=== PATIENT | male | born 1950 | race Caucasian/White ===

== ENCOUNTER 2017-10-31 10:09 | Inpatient (IN) | payer MEDICARE ==
[2017-10-29 11:28] LABS: BASOPHILS % (AUTO) 0.3 % (0-1); EOSINOPHILS # (AUTO) 0.1 X10'3 (0-0.9); EOSINOPHILS % (AUTO) 1.1 % (0-6); HEMOGLOBIN 15.3 g/dl (14.0-17.9); LYMPHOCYTES # (AUTO) 1.5 X10'3 (1.1-4.8); LYMPHOCYTES % (AUTO) 20.1 % (21-51); MEAN CORPUSCULAR HEMOGLOBIN 33.3 PG (27.0-31.0); MEAN CORPUSCULAR HGB CONC 35.6 % (33.0-36.5); MEAN CORPUSCULAR VOLUME 93.5 FL (78-98); MEAN PLATELET VOLUME 6.8 FL (7.4-10.4); MONOCYTES # (AUTO) 0.5 X10'3 (0-0.9); MONOCYTES % (AUTO) 6.5 % (2-12); NEUTROPHILS # (AUTO) 5.3 X10'3 (1.8-7.7); PLATELET COUNT 200 X10'3 (140-440); RED CELL DISTRIBUTION WIDTH 14.4 % (11.5-14.5); WHITE BLOOD COUNT 7.3 X10'3 (4.5-11.0)
[2017-10-29 11:49] LABS: PARTIAL THROMBOPLASTIN TIME 23 SECONDS (22-32)
[2017-10-29 11:55] LABS: ALANINE AMINOTRANSFERASE 32 U/L (12-78); ALBUMIN 3.5 G/DL (3.4-5.0); ALBUMIN/GLOBULIN RATIO 0.9 (1.1-1.5); ALKALINE PHOSPHATASE 67 IU/L (46-116); ANION GAP 10 (8-16); ASPARTATE AMINO TRANSFERASE 18 U/L (10-37); BILIRUBIN,TOTAL 0.6 MG/DL (0.1-1.0); BLOOD UREA NITROGEN 11 MG/DL (7-18); BUN/CREATININE RATIO 13.6 (5.4-32.0); CALCIUM 9.3 MG/DL (8.5-10.1); CHLORIDE 101 MMOL/L (99-107); CREATININE 0.81 MG/DL (0.60-1.10); GLUCOSE 293 MG/DL (70-104); POTASSIUM 4.2 MMOL/L (3.5-5.1); SODIUM 139 MMOL/L (135-145); TOTAL CARBON DIOXIDE 27.7 MMOL/L (24-32); TOTAL PROTEIN 7.6 G/DL (6.4-8.2); eGFR > 90 ML/MIN
[~2017-10-31] VITALS: Ht 172.7 cm; Wt 94.5 kg
[2017-10-31] VITALS (12 sets, daily range): BP systolic 127–160; BP diastolic 70–96
[2017-10-31] MEDS ORDERED: LORazepam 0.5 MG tablet PO PRN (10:30)
[2017-10-31] MEDS ORDERED: dextrose 50%-water 50ml dispensing syringe IV PRN ×3 (10:30→14:40)
[2017-10-31] MEDS ORDERED: glucagon, human recombinant 1mg kit SUBCUT PRN (10:30)
[2017-10-31] MEDS ORDERED: nitroGLYCERIN 0.4mg SUBLingual tab SL PRN (10:30)
[2017-10-31] MEDS ORDERED: diphenhydrAMINE 25mg capsule PO PRN (10:30)
[2017-10-31] MEDS ORDERED: insulin Lispro (HumaLOG) vial - multi-dose SQ SCH (10:30)
[2017-10-31] MEDS ORDERED: MESSAGE TO PHARMACY PO ONE (10:30)
[2017-10-31] MEDS ORDERED: dextrose ORAL solution 15 GM/59 ML bottle PO PRN ×2 (10:30)
[2017-10-31] MEDS ORDERED: GABA-532 PO (11:19)
[2017-10-31] MEDS ORDERED: NAPR220T67 PO (11:19)
[2017-10-31] MEDS ORDERED: ASPI-1264 PO (11:19)
[2017-10-31] MEDS: normal saline 1000ml 1,000 ML IV SCH ×2 (11:39→18:07)
[2017-10-31] MEDS ORDERED: fentaNYL/PF 50MCG/1 ML 2ML syringe ONE ×2 (11:55→12:46)
[2017-10-31] MEDS ORDERED: midazolam 2 mg/2 ml injection ONE ×2 (11:55→12:43)
[2017-10-31] MEDS ORDERED: iohexol 350 MG/ML 50ML vial IV ONE ×2 (11:55→12:58)
[2017-10-31] MEDS ORDERED: iohexol 350MG/ML 100ml bottle IV ONE (11:55)
[2017-10-31] MEDS ORDERED: LIDOcaine 1% w/EPI 1:100,000 30ml vial (MDV) ONE (11:55)
[2017-10-31] MEDS ORDERED: papaverine 30 mg/ml 2ml inj. ONE (14:00)
[2017-10-31] MEDS ORDERED: heparin 10,000 units/1 ML INJ ONE (14:00)
[2017-10-31] MEDS ORDERED: MESSAGE TO NURSING PO ONE ×4 (14:40)
[2017-10-31 17:58] LABS: BASOPHILS % (AUTO) 0.5 % (0-1); EOSINOPHILS # (AUTO) 0.1 X10'3 (0-0.9); EOSINOPHILS % (AUTO) 1.3 % (0-6); HEMATOCRIT 40.8 % (42.0-52.0); HEMOGLOBIN 14.5 g/dl (14.0-17.9); LYMPHOCYTES # (AUTO) 1.5 X10'3 (1.1-4.8); LYMPHOCYTES % (AUTO) 25.9 % (21-51); MEAN CORPUSCULAR HEMOGLOBIN 33.1 PG (27.0-31.0); MEAN CORPUSCULAR HGB CONC 35.6 % (33.0-36.5); MEAN CORPUSCULAR VOLUME 93.1 FL (78-98); MEAN PLATELET VOLUME 7.2 FL (7.4-10.4); MONOCYTES # (AUTO) 0.4 X10'3 (0-0.9); MONOCYTES % (AUTO) 7.3 % (2-12); NEUTROPHILS # (AUTO) 3.8 X10'3 (1.8-7.7); PLATELET COUNT 169 X10'3 (140-440); RED BLOOD COUNT 4.38 X10'6 (4.70-6.10); RED CELL DISTRIBUTION WIDTH 14.3 % (11.5-14.5); WHITE BLOOD COUNT 5.8 X10'3 (4.5-11.0)
[2017-10-31 18:07] LABS: PARTIAL THROMBOPLASTIN TIME 24 SECONDS (22-32); PROTHROMBIN TIME 10.3 SECONDS (9.0-12.0)
[2017-10-31 18:14] LABS: ALANINE AMINOTRANSFERASE 32 U/L (12-78); ALBUMIN/GLOBULIN RATIO 0.9 (1.1-1.5); ALKALINE PHOSPHATASE 59 IU/L (46-116); ANION GAP 9 (8-16); ASPARTATE AMINO TRANSFERASE 16 U/L (10-37); BILIRUBIN,TOTAL 0.6 MG/DL (0.1-1.0); BLOOD UREA NITROGEN 13 MG/DL (7-18); BUN/CREATININE RATIO 15.5 (5.4-32.0); CALCIUM 8.4 MG/DL (8.5-10.1); CHLORIDE 104 MMOL/L (99-107); CREATININE 0.84 MG/DL (0.60-1.10); GLUCOSE 288 MG/DL (70-104); POTASSIUM 3.2 MMOL/L (3.5-5.1); SODIUM 140 MMOL/L (135-145); TOTAL CARBON DIOXIDE 27.5 MMOL/L (24-32); TOTAL PROTEIN 6.5 G/DL (6.4-8.2); eGFR > 90 ML/MIN
[2017-10-31] MEDS ORDERED: magnesium 1gm/100ml D5W IVPB 100 ML IV PRN (19:55)
[2017-10-31] MEDS ORDERED: potassium Cl 40MEQ/NS 500ml 500 ML IV PRN ×2 (19:55)
[2017-10-31] MEDS ORDERED: magnesium 4gm in 100ml NS 100 ML IV PRN (19:55)
[2017-10-31] MEDS ORDERED: magnesium Cl slow-release 64mg tablet PO PRN (19:55)
[2017-10-31] MEDS ORDERED: potassium Cl 20 mEq SR tablet PO PRN (19:55)
[2017-10-31] MEDS ORDERED: mupirocin 2% nasal ointment 1gm UD NS SCH (20:00)
[2017-10-31] MEDS ORDERED: metoprolol tartrate 25mg tablet PO SCH (20:00)
[2017-10-31] MEDS ORDERED: insulin glargine (Lantus) pen - multi-dose SQ SCH (21:00)
[2017-10-31] MEDS: potassium Cl 20 mEq SR tablet PO PRN (21:08)
[2017-10-31 21:36] LABS: ABG BASE EXCESS 1.4 mmol/L (-2.0-3.0); ABG HCO3 25.4 mmol/L (22.0-26.0); ABG OXYGEN SATURATION 95.4 % (95-98); ABG PCO2 (T) 38.4 mmHg (35.0-48.0); ABG PH (T) 7.439 (7.350-7.450); ABG PO2 (T) 75.5 mmHg (83-108); ALLEN'S TEST Positive; FCOHb 0.5 % (0.5-1.5); FMetHb 0.2 % (0.3-1.12); FO2Hb 94.7 % (94-100); TOTAL HEMOGLOBIN 13.8 G/dl (14.0-18.0)
[2017-10-31] MEDS ORDERED: ringers solution, lacted 1,000 ML IV ONE (21:45)
[2017-11-01] VITALS (16 sets, daily range): BP systolic 100–159; BP diastolic 50–89
[2017-11-01] MEDS: potassium Cl 20 mEq SR tablet PO PRN (01:28)
[2017-11-01] MEDS: insulin regular, human inj. 100 UNITS in normal saline 100ml IV soln 100 ML IV SCH ×10 (05:00→22:30)
[2017-11-01] MEDS ORDERED: cefazolin/dext.iso 2gm/50ml 50 ML IV ONE (05:00)
[2017-11-01] MEDS ORDERED: vancomycin/NS 1 GM ADD-VANTAGE 250 ML IV ONE (05:00)
[2017-11-01] MEDS ORDERED: famotidine 20mg tablet PO ONE (06:00)
[2017-11-01] MEDS ORDERED: LORazepam 2 mg/ml vial IV ONE (06:00)
[2017-11-01 06:34] LABS: PARTIAL THROMBOPLASTIN TIME 25 SECONDS (22-32); PROTHROMBIN TIME 10.4 SECONDS (9.0-12.0)
[2017-11-01 06:46] LABS: ALANINE AMINOTRANSFERASE 35 U/L (12-78); ALBUMIN 3.1 G/DL (3.4-5.0); ALBUMIN/GLOBULIN RATIO 0.9 (1.1-1.5); ALKALINE PHOSPHATASE 58 IU/L (46-116); ANION GAP 10 (8-16); ASPARTATE AMINO TRANSFERASE 17 U/L (10-37); BILIRUBIN,TOTAL 0.8 MG/DL (0.1-1.0); BLOOD UREA NITROGEN 11 MG/DL (7-18); BUN/CREATININE RATIO 15.1 (5.4-32.0); CALCIUM 8.5 MG/DL (8.5-10.1); CHLORIDE 105 MMOL/L (99-107); CREATININE 0.73 MG/DL (0.60-1.10); GLUCOSE 208 MG/DL (70-104); MAGNESIUM 1.7 MG/DL (1.5-2.4); POTASSIUM 3.4 MMOL/L (3.5-5.1); SODIUM 140 MMOL/L (135-145); TOTAL CARBON DIOXIDE 25.1 MMOL/L (24-32); TOTAL PROTEIN 6.4 G/DL (6.4-8.2); eGFR > 90 ML/MIN
[2017-11-01] MEDS ORDERED: MIDAZolam 1mg/ml 10ml vial ONE (06:56)
[2017-11-01] MEDS ORDERED: SUFENTANIL CITRATE 50 MCG/ML 2ml ampule IV ONE ×2 (06:56→11:36)
[2017-11-01] MEDS ORDERED: heparin 10,000 units/1 ML INJ IR ONE (07:00)
[2017-11-01] MEDS ORDERED: papaverine 30 mg/ml 2ml inj. IA ONE (07:00)
[2017-11-01] MEDS ORDERED: heparin 10,000 units/1 ML INJ ONE (07:11)
[2017-11-01] MEDS ORDERED: aminocaproic acid 250 MG/1 ML inj. ONE (07:11)
[2017-11-01] MEDS ORDERED: isoflurane 100ml inhalation liquid IH ONE (07:11)
[2017-11-01] MEDS ORDERED: phenylephrine 10mg/ml inj. ONE ×2 (07:11→11:16)
[2017-11-01] MEDS ORDERED: methylPREDNISolone sod. succ. 500mg inj ONE (07:11)
[2017-11-01] MEDS ORDERED: heparin 1,000 units/ml 10ml inj ONE (07:11)
[2017-11-01] MEDS ORDERED: protamine sulf. 10mg/ml inj. IV ONE (07:11)
[2017-11-01] MEDS ORDERED: LIDOcaine 2% 10ml vial ONE (07:11)
[2017-11-01] MEDS ORDERED: albumin (human) 25% 100 ML IV solution IV ONE (07:11)
[2017-11-01] MEDS ORDERED: sodium bicarbonate (8.4%) 1 mEq/ml syringe ONE (07:11)
[2017-11-01] MEDS ORDERED: calcium chloride 100 MG/1 ML inj IV ONE (07:11)
[2017-11-01] MEDS ORDERED: nitroGLYCERIN in D5W 50mg/250ml (Tridil) infusion IV ONE (07:11)
[2017-11-01 07:19] LABS: HEMATOCRIT 38.5 % (42.0-52.0); HEMOGLOBIN 13.6 g/dl (14.0-17.9); MEAN CORPUSCULAR VOLUME 93.3 FL (78-98); RED BLOOD COUNT 4.13 X10'6 (4.70-6.10); WHITE BLOOD COUNT 6.5 X10'3 (4.5-11.0)
[2017-11-01 07:20] LABS: BASOPHILS % (AUTO) 0.5 % (0-1); EOSINOPHILS # (AUTO) 0.2 X10'3 (0-0.9); EOSINOPHILS % (AUTO) 2.8 % (0-6); LYMPHOCYTES # (AUTO) 1.6 X10'3 (1.1-4.8); MEAN CORPUSCULAR HGB CONC 35.4 % (33.0-36.5); MEAN PLATELET VOLUME 7.6 FL (7.4-10.4); MONOCYTES # (AUTO) 0.5 X10'3 (0-0.9); MONOCYTES % (AUTO) 7.6 % (2-12); NEUTROPHILS # (AUTO) 4.2 X10'3 (1.8-7.7); NEUTROPHILS % (AUTO) 65.1 % (42-75); PLATELET COUNT 168 X10'3 (140-440); RED CELL DISTRIBUTION WIDTH 14.1 % (11.5-14.5)
[2017-11-01 08:10] LABS: ABG BASE EXCESS -0.1 mmol/L (-2.0-3.0); ABG HCO3 24.3 mmol/L (22.0-26.0); ABG OXYGEN SATURATION 99.4 % (95-98); ABG PCO2 38.6 mmHg (35.0-45.0); ABG PH 7.416 (7.350-7.450); ABG PO2 485.3 mmHg (60.0-100.0); CL (ABG) 107 mmol/L (99-107); FCOHb 0.2 % (0.5-1.5); FMetHb 0.4 % (0.3-1.12); FO2Hb 98.8 % (94-100); GLUCOSE (ABG) 181 mg/dl (70-105); IONIZED CA (ABG) 1.15 mmol/L (1.03-1.32); NA (ABG) 136 mmol/L (135-145); TOTAL HEMOGLOBIN 12.3 G/dl (14.0-18.0)
[2017-11-01] MEDS ORDERED: insulin Lispro (HumaLOG) vial - multi-dose SQ SCH (09:00)
[2017-11-01 09:56] LABS: ABG BASE EXCESS 1.8 mmol/L (-2.0-3.0); ABG HCO3 25.2 mmol/L (22.0-26.0); ABG OXYGEN SATURATION 99.4 % (95-98); ABG PH 7.475 (7.350-7.450); ABG PO2 547.1 mmHg (60.0-100.0); CL (ABG) 106 mmol/L (99-107); FCOHb 0.3 % (0.5-1.5); FMetHb 0.2 % (0.3-1.12); FO2Hb 98.9 % (94-100); GLUCOSE (ABG) 103 mg/dl (70-105); IONIZED CA (ABG) 1.03 mmol/L (1.03-1.32); NA (ABG) 135 mmol/L (135-145); TOTAL HEMOGLOBIN 10.1 G/dl (14.0-18.0)
[2017-11-01] MEDS ORDERED: MESSAGE TO NURSING PO ONE (10:00)
[2017-11-01 10:16] LABS: ABG BASE EXCESS VENOUS 1.5 mmol/L; ABG HCO3 VENOUS 25.6 mmol/L; ABG PCO2 VENOUS 38.8 mmHg; ABG PO2 VENOUS 41.9 mmHg; CL (ABG) 106 mmol/L (99-107); FCOHb VENOUS 0.7 %; FHHb VENOUS 19.5 %; FMetHb VENOUS 0.1 %; FO2Hb VENOUS 79.7 %; GLUCOSE (ABG) 95 mg/dl (70-105); IONIZED CA (ABG) 1.05 mmol/L (1.03-1.32); K (ABG) 3.3 mmol/L (3.3-5.1); NA (ABG) 136 mmol/L (135-145); TOTAL HEMOGLOBIN 10.3 G/dl (14.0-18.0)
[2017-11-01 10:31] LABS: ABG BASE EXCESS 1.7 mmol/L (-2.0-3.0); ABG PCO2 34.2 mmHg (35.0-45.0); ABG PH 7.481 (7.350-7.450); ABG PO2 357.1 mmHg (60.0-100.0); CL (ABG) 109 mmol/L (99-107); FCOHb 0.3 % (0.5-1.5); FMetHb 0.4 % (0.3-1.12); FO2Hb 98.3 % (94-100); GLUCOSE (ABG) 101 mg/dl (70-105); IONIZED CA (ABG) 1.04 mmol/L (1.03-1.32); K (ABG) 4.3 mmol/L (3.3-5.1); NA (ABG) 136 mmol/L (135-145); TOTAL HEMOGLOBIN 10.1 G/dl (14.0-18.0)
[2017-11-01] MEDS ORDERED: ipratropium/albuterol 3ml nebule IH PRN (10:40)
[2017-11-01 10:56] LABS: ABG HCO3 26.3 mmol/L (22.0-26.0); ABG OXYGEN SATURATION 98.8 % (95-98); ABG PCO2 35.1 mmHg (35.0-45.0); ABG PH 7.493 (7.350-7.450); CL (ABG) 108 mmol/L (99-107); FCOHb 0.3 % (0.5-1.5); FMetHb 0.6 % (0.3-1.12); FO2Hb 97.9 % (94-100); GLUCOSE (ABG) 109 mg/dl (70-105); IONIZED CA (ABG) 1.21 mmol/L (1.03-1.32); NA (ABG) 136 mmol/L (135-145); TOTAL HEMOGLOBIN 9.6 G/dl (14.0-18.0)
[2017-11-01] MEDS ORDERED: etomidate 2mg/ml inj. ONE (11:16)
[2017-11-01] MEDS ORDERED: rocuronium 10mg/ml inj IV ONE (11:16)
[2017-11-01] MEDS ORDERED: LIDOcaine 2% (20mg/ml) 5ml vial ONE (11:16)
[2017-11-01 11:21] LABS: ABG HCO3 VENOUS 26.8 mmol/L; ABG PCO2 VENOUS 42.7 mmHg; ABG PO2 VENOUS 42.1 mmHg; CL (ABG) 108 mmol/L (99-107); FCOHb VENOUS 0.2 %; FHHb VENOUS 20.4 %; FMetHb VENOUS 0.6 %; FO2Hb VENOUS 78.8 %; GLUCOSE (ABG) 127 mg/dl (70-105); IONIZED CA (ABG) 1.21 mmol/L (1.03-1.32); K (ABG) 3.7 mmol/L (3.3-5.1); NA (ABG) 137 mmol/L (135-145); TOTAL HEMOGLOBIN 10.5 G/dl (14.0-18.0)
[2017-11-01] MEDS ORDERED: ceFAZolin 1000mg inj ONE (11:26)
[2017-11-01] MEDS: sodium chloride 0.45% 1,000 ML IV SCH (11:58)
[2017-11-01] MEDS ORDERED: DOPamine 400mg/D5W 250ml 250 ML IV PRN (11:58)
[2017-11-01] MEDS ORDERED: niCARDipine/sod cl 20mg/200ml 200 ML IV PRN ×2 (11:58→12:21)
[2017-11-01] MEDS ORDERED: nitroGLYCERIN-Tridil 50MG/D5W 250 ML IV PRN (11:58)
[2017-11-01] MEDS ORDERED: normal saline 250ml IV soln 250 ML IV PRN (12:00)
[2017-11-01] MEDS ORDERED: metoclopramide 5 mg/ml inj IV PRN (12:00)
[2017-11-01] MEDS ORDERED: Neutra Phos packet PO PRN (12:00)
[2017-11-01] MEDS ORDERED: ondansetron/PF 4mg/2ml inj IV PRN (12:00)
[2017-11-01] MEDS ORDERED: dextrose 50%-water 50ml dispensing syringe IV PRN (12:00)
[2017-11-01] MEDS ORDERED: sodium phosphate inj. 30 MMOL in dextrose 5%-water 250 ML IV PRN (12:00)
[2017-11-01] MEDS ORDERED: insulin regular, human inj. 100 UNITS in normal saline 100ml IV soln 100 ML IV SCH ×2 (12:00)
[2017-11-01] MEDS ORDERED: magnesium 4gm in 100ml NS 100 ML IV PRN (12:00)
[2017-11-01] MEDS ORDERED: magnesium hydroxide 30ml (MOM) UD suspension PO PRN (12:00)
[2017-11-01] MEDS ORDERED: HYDROcodone/acetaminophen 10/325mg tab PO PRN (12:00)
[2017-11-01] MEDS ORDERED: morphine 4 MG/ML inj SYRINge IV PRN (12:00)
[2017-11-01] MEDS ORDERED: potassium Cl 20mEq/100mL bag 100 ML IV PRN (12:00)
[2017-11-01] MEDS ORDERED: acetaminophen 325mg tablet PO PRN (12:00)
[2017-11-01] MEDS ORDERED: sodium phosphate inj. 15 MMOL in dextrose 5%-water 150 ML IV PRN (12:00)
[2017-11-01 12:21] LABS: ABG BASE EXCESS -2.9 mmol/L (-2.0-3.0); ABG HCO3 21.7 mmol/L (22.0-26.0); ABG OXYGEN SATURATION 97.9 % (95-98); ABG PCO2 (T) 36.9 mmHg (35.0-48.0); ABG PH (T) 7.387 (7.350-7.450); ABG PO2 (T) 131.3 mmHg (83-108); FCOHb 0.3 % (0.5-1.5); FMetHb 0.3 % (0.3-1.12); FO2Hb 97.3 % (94-100); PEEP 5 cm H2O; RESPIRATORY RATE 12 b/min; TIDAL VOLUME 600 mL; TOTAL HEMOGLOBIN 11.2 G/dl (14.0-18.0)
[2017-11-01 12:25] LABS: BASOPHILS % (AUTO) 0 % (0-1); EOSINOPHILS % (AUTO) 0.4 % (0-6); HEMATOCRIT 28.9 % (42.0-52.0); HEMOGLOBIN 10.2 g/dl (14.0-17.9); LYMPHOCYTES # (AUTO) 0.7 X10'3 (1.1-4.8); LYMPHOCYTES % (AUTO) 8.3 % (21-51); MEAN CORPUSCULAR HEMOGLOBIN 32.8 PG (27.0-31.0); MEAN CORPUSCULAR HGB CONC 35.2 % (33.0-36.5); MEAN CORPUSCULAR VOLUME 93.3 FL (78-98); MEAN PLATELET VOLUME 6.6 FL (7.4-10.4); MONOCYTES # (AUTO) 0.3 X10'3 (0-0.9); MONOCYTES % (AUTO) 3.2 % (2-12); NEUTROPHILS # (AUTO) 7.1 X10'3 (1.8-7.7); NEUTROPHILS % (AUTO) 88.1 % (42-75); PLATELET COUNT 120 X10'3 (140-440); RED BLOOD COUNT 3.09 X10'6 (4.70-6.10); RED CELL DISTRIBUTION WIDTH 14.2 % (11.5-14.5); WHITE BLOOD COUNT 8.1 X10'3 (4.5-11.0)
[2017-11-01] MEDS: albumin (Human) 5% 250ml 250 ML IV PRN ×4 (12:35→16:14)
[2017-11-01 12:40] LABS: ALANINE AMINOTRANSFERASE 25 U/L (12-78); ALBUMIN 2.8 G/DL (3.4-5.0); ALBUMIN/GLOBULIN RATIO 1.4 (1.1-1.5); ALKALINE PHOSPHATASE 35 IU/L (46-116); ANION GAP 6 (8-16); ASPARTATE AMINO TRANSFERASE 30 U/L (10-37); BILIRUBIN,TOTAL 0.7 MG/DL (0.1-1.0); BLOOD UREA NITROGEN 7 MG/DL (7-18); BUN/CREATININE RATIO 10.4 (5.4-32.0); CALCIUM 7.9 MG/DL (8.5-10.1); CHLORIDE 111 MMOL/L (99-107); CREATININE 0.67 MG/DL (0.60-1.10); GLUCOSE 152 MG/DL (70-104); MAGNESIUM 2.7 MG/DL (1.5-2.4); PHOSPHORUS 2.3 MG/DL (2.3-4.5); POTASSIUM 3.5 MMOL/L (3.5-5.1); SODIUM 143 MMOL/L (135-145); TOTAL CARBON DIOXIDE 25.8 MMOL/L (24-32); TOTAL PROTEIN 4.8 G/DL (6.4-8.2); eGFR > 90 ML/MIN
[2017-11-01] MEDS: insulin Lispro (HumaLOG) vial - multi-dose SQ SCH ×2 (13:00→18:00)
[2017-11-01 13:09] LABS: INR 1.1 INR; PARTIAL THROMBOPLASTIN TIME 29 SECONDS (22-32); PROTHROMBIN TIME 11.6 SECONDS (9.0-12.0)
[2017-11-01] MEDS: morphine 4 MG/ML inj SYRINge IV PRN ×4 (13:21→22:43)
[2017-11-01] MEDS: potassium Cl 20mEq/100mL bag 100 ML IV PRN ×2 (13:43→19:42)
[2017-11-01] MEDS: ceFAZolin 1GM/D5W- ADD-VANTAGE 50 ML IV SCH ×2 (15:42→23:48)
[2017-11-01 17:33] LABS: BASOPHILS % (AUTO) 0 % (0-1); EOSINOPHILS % (AUTO) 0 % (0-6); HEMATOCRIT 26.5 % (42.0-52.0); HEMOGLOBIN 9.4 g/dl (14.0-17.9); LYMPHOCYTES # (AUTO) 0.4 X10'3 (1.1-4.8); MEAN CORPUSCULAR HEMOGLOBIN 32.9 PG (27.0-31.0); MEAN CORPUSCULAR HGB CONC 35.3 % (33.0-36.5); MEAN CORPUSCULAR VOLUME 93.2 FL (78-98); MEAN PLATELET VOLUME 6.8 FL (7.4-10.4); MONOCYTES # (AUTO) 0.4 X10'3 (0-0.9); MONOCYTES % (AUTO) 4.3 % (2-12); NEUTROPHILS # (AUTO) 7.6 X10'3 (1.8-7.7); NEUTROPHILS % (AUTO) 90.7 % (42-75); PLATELET COUNT 106 X10'3 (140-440); RED BLOOD COUNT 2.85 X10'6 (4.70-6.10); RED CELL DISTRIBUTION WIDTH 14.5 % (11.5-14.5); WHITE BLOOD COUNT 8.3 X10'3 (4.5-11.0)
[2017-11-01 17:46] LABS: ALBUMIN 3.7 G/DL (3.4-5.0); ANION GAP 10 (8-16); BLOOD UREA NITROGEN 9 MG/DL (7-18); BUN/CREATININE RATIO 11.3 (5.4-32.0); CALCIUM 7.9 MG/DL (8.5-10.1); CHLORIDE 111 MMOL/L (99-107); GLUCOSE 225 MG/DL (70-104); MAGNESIUM 2.2 MG/DL (1.5-2.4); SODIUM 143 MMOL/L (135-145); TOTAL CARBON DIOXIDE 22.3 MMOL/L (24-32); eGFR > 90 ML/MIN
[2017-11-01] MEDS: magnesium 1gm/100ml D5W IVPB 100 ML IV PRN ×2 (19:45→20:45)
[2017-11-01] MEDS: vancomycin/NS 1 GM ADD-VANTAGE 250 ML IV SCH (19:46)
[2017-11-01] MEDS: docusate sod 100mg capsule PO SCH (19:51)
[2017-11-01] MEDS: mupirocin 2% ointment 22GM NS SCH (19:51)
[2017-11-01 21:10] LABS: ABG BASE EXCESS -3.7 mmol/L (-2.0-3.0); ABG HCO3 20.6 mmol/L (22.0-26.0); ABG OXYGEN SATURATION 96.7 % (95-98); ABG PCO2 (T) 33.2 mmHg (35.0-48.0); ABG PH (T) 7.407 (7.350-7.450); ABG PO2 (T) 95.9 mmHg (83-108); FCOHb 0.2 % (0.5-1.5); FMetHb 0.1 % (0.3-1.12); FO2Hb 96.4 % (94-100); MINUTE VOLUME 12 L/min; PATIENT TEMPERATURE 36.3; PEEP 5 cm H2O
[2017-11-02] VITALS (24 sets, daily range): BP systolic 102–143; BP diastolic 53–77
[2017-11-02] MEDS: insulin regular, human inj. 100 UNITS in normal saline 100ml IV soln 100 ML IV SCH ×14 (00:30→11:26)
[2017-11-02] MEDS: morphine 4 MG/ML inj SYRINge IV PRN ×3 (01:21→09:18)
[2017-11-02 04:13] LABS: BASOPHILS % (AUTO) 0 % (0-1); EOSINOPHILS % (AUTO) 0 % (0-6); HEMATOCRIT 26.9 % (42.0-52.0); HEMOGLOBIN 9.3 g/dl (14.0-17.9); LYMPHOCYTES # (AUTO) 0.5 X10'3 (1.1-4.8); LYMPHOCYTES % (AUTO) 5.2 % (21-51); MEAN CORPUSCULAR HGB CONC 34.5 % (33.0-36.5); MEAN CORPUSCULAR VOLUME 95.6 FL (78-98); MEAN PLATELET VOLUME 8.1 FL (7.4-10.4); MONOCYTES # (AUTO) 0.6 X10'3 (0-0.9); MONOCYTES % (AUTO) 6.9 % (2-12); NEUTROPHILS # (AUTO) 7.7 X10'3 (1.8-7.7); NEUTROPHILS % (AUTO) 87.9 % (42-75); PLATELET COUNT 106 X10'3 (140-440); RED BLOOD COUNT 2.81 X10'6 (4.70-6.10); RED CELL DISTRIBUTION WIDTH 14.7 % (11.5-14.5); WHITE BLOOD COUNT 8.8 X10'3 (4.5-11.0)
[2017-11-02 04:22] LABS: PARTIAL THROMBOPLASTIN TIME 29 SECONDS (22-32); PROTHROMBIN TIME 10.6 SECONDS (9.0-12.0)
[2017-11-02 04:25] LABS: ALANINE AMINOTRANSFERASE 24 U/L (12-78); ALBUMIN 3.4 G/DL (3.4-5.0); ALBUMIN/GLOBULIN RATIO 1.5 (1.1-1.5); ALKALINE PHOSPHATASE 30 IU/L (46-116); ANION GAP 10 (8-16); ASPARTATE AMINO TRANSFERASE 23 U/L (10-37); BILIRUBIN,TOTAL 0.4 MG/DL (0.1-1.0); BLOOD UREA NITROGEN 12 MG/DL (7-18); BUN/CREATININE RATIO 16.7 (5.4-32.0); CALCIUM 8.2 MG/DL (8.5-10.1); CHLORIDE 110 MMOL/L (99-107); CREATININE 0.72 MG/DL (0.60-1.10); GLUCOSE 110 MG/DL (70-104); MAGNESIUM 2.9 MG/DL (1.5-2.4); PHOSPHORUS 2.5 MG/DL (2.3-4.5); POTASSIUM 3.7 MMOL/L (3.5-5.1); SODIUM 144 MMOL/L (135-145); TOTAL PROTEIN 5.6 G/DL (6.4-8.2); eGFR > 90 ML/MIN
[2017-11-02] MEDS: potassium Cl 20mEq/100mL bag 100 ML IV PRN ×2 (05:05→06:07)
[2017-11-02] MEDS ORDERED: aspirin 325mg tablet, delayed-release (Ecotrin) PO SCH (08:00)
[2017-11-02] MEDS ORDERED: metoprolol tartrate 12.5mg (1/2 tablet) PO SCH (08:00)
[2017-11-02] MEDS: ceFAZolin 1GM/D5W- ADD-VANTAGE 50 ML IV SCH ×2 (08:18→16:13)
[2017-11-02] MEDS: vancomycin/NS 1 GM ADD-VANTAGE 250 ML IV SCH ×2 (08:18→20:41)
[2017-11-02] MEDS: atorvastatin 10mg tablet PO SCH (08:19)
[2017-11-02] MEDS: mupirocin 2% ointment 22GM NS SCH ×2 (08:19→20:42)
[2017-11-02] MEDS: pantoprazole 40mg Tablet.DR PO SCH (08:19)
[2017-11-02] MEDS: docusate sod 100mg capsule PO SCH ×2 (08:19→20:41)
[2017-11-02] MEDS: insulin Lispro (HumaLOG) vial - multi-dose SQ SCH ×4 (09:00→19:22)
[2017-11-02] MEDS: ketorolac tromethamine 15mg/ml inj. IV SCH ×2 (14:06→20:41)
[2017-11-02] MEDS: metoprolol tartrate 12.5mg (1/2 tablet) PO SCH (20:41)
[2017-11-02] MEDS ORDERED: dextrose ORAL solution 15 GM/59 ML bottle PO PRN (21:30)
[2017-11-02] MEDS ORDERED: MESSAGE TO PHARMACY PO ONE (21:30)
[2017-11-02] MEDS ORDERED: insulin glargine (Lantus) pen - multi-dose SQ ONE (21:43)
[2017-11-03] VITALS (24 sets, daily range): BP systolic 118–152; BP diastolic 63–86
[2017-11-03] MEDS: ketorolac tromethamine 15mg/ml inj. IV SCH ×4 (01:15→20:00)
[2017-11-03] MEDS: ceFAZolin 1GM/D5W- ADD-VANTAGE 50 ML IV SCH (01:16)
[2017-11-03 06:42] LABS: BASOPHILS % (AUTO) 0 % (0-1); EOSINOPHILS % (AUTO) 0 % (0-6); HEMATOCRIT 27.1 % (42.0-52.0); HEMOGLOBIN 9.6 g/dl (14.0-17.9); LYMPHOCYTES # (AUTO) 0.6 X10'3 (1.1-4.8); LYMPHOCYTES % (AUTO) 7.2 % (21-51); MEAN CORPUSCULAR HEMOGLOBIN 33.3 PG (27.0-31.0); MEAN CORPUSCULAR HGB CONC 35.5 % (33.0-36.5); MEAN CORPUSCULAR VOLUME 93.9 FL (78-98); MEAN PLATELET VOLUME 7.3 FL (7.4-10.4); MONOCYTES # (AUTO) 0.6 X10'3 (0-0.9); MONOCYTES % (AUTO) 7.1 % (2-12); NEUTROPHILS # (AUTO) 7.2 X10'3 (1.8-7.7); NEUTROPHILS % (AUTO) 85.7 % (42-75); PLATELET COUNT 98 X10'3 (140-440); RED BLOOD COUNT 2.88 X10'6 (4.70-6.10); RED CELL DISTRIBUTION WIDTH 15.1 % (11.5-14.5); WHITE BLOOD COUNT 8.4 X10'3 (4.5-11.0)
[2017-11-03 07:28] LABS: ALBUMIN 3.1 G/DL (3.4-5.0); ANION GAP 10 (8-16); BLOOD UREA NITROGEN 15 MG/DL (7-18); BUN/CREATININE RATIO 18.3 (5.4-32.0); CALCIUM 8.2 MG/DL (8.5-10.1); CHLORIDE 107 MMOL/L (99-107); CREATININE 0.82 MG/DL (0.60-1.10); GLUCOSE 204 MG/DL (70-104); MAGNESIUM 2.1 MG/DL (1.5-2.4); POTASSIUM 4.1 MMOL/L (3.5-5.1); SODIUM 140 MMOL/L (135-145); TOTAL CARBON DIOXIDE 23.5 MMOL/L (24-32); eGFR > 90 ML/MIN
[2017-11-03] MEDS: docusate sod 100mg capsule PO SCH ×2 (07:30→20:17)
[2017-11-03] MEDS: metoprolol tartrate 12.5mg (1/2 tablet) PO SCH ×2 (07:30→20:18)
[2017-11-03] MEDS: pantoprazole 40mg Tablet.DR PO SCH (07:30)
[2017-11-03] MEDS: atorvastatin 10mg tablet PO SCH (07:30)
[2017-11-03] MEDS: aspirin 81mg tablet.DR PO SCH (07:30)
[2017-11-03] MEDS: mupirocin 2% ointment 22GM NS SCH (07:31)
[2017-11-03] MEDS: potassium Cl 20mEq/100mL bag 100 ML IV PRN (08:27)
[2017-11-03] MEDS: insulin Lispro (HumaLOG) vial - multi-dose SQ SCH ×3 (08:34→18:45)
[2017-11-03] MEDS ORDERED: cyclobenzaprine 10mg tablet PO PRN (09:10)
[2017-11-03] MEDS: sodium chloride 0.45% 1,000 ML IV SCH (11:58)
[2017-11-03] MEDS: Protein Shake (high protein) 240ml (8oz) cup PO SCH (18:00)
[2017-11-03] MEDS: gabapentin 300mg capsule PO SCH (20:18)
[2017-11-03] MEDS: insulin glargine (Lantus) pen - multi-dose SQ SCH (20:24)
[2017-11-03] MEDS: magnesium 1gm/100ml D5W IVPB 100 ML IV PRN ×2 (20:28→21:00)
[2017-11-04] VITALS (16 sets, daily range): BP systolic 104–150; BP diastolic 59–91
[2017-11-04] MEDS: ketorolac tromethamine 15mg/ml inj. IV SCH ×5 (02:00→20:26)
[2017-11-04 02:51] LABS: BASOPHILS % (AUTO) 0.1 % (0-1); EOSINOPHILS % (AUTO) 0.1 % (0-6); HEMATOCRIT 25.3 % (42.0-52.0); HEMOGLOBIN 8.7 g/dl (14.0-17.9); LYMPHOCYTES # (AUTO) 0.6 X10'3 (1.1-4.8); LYMPHOCYTES % (AUTO) 8.6 % (21-51); MEAN CORPUSCULAR HEMOGLOBIN 32.7 PG (27.0-31.0); MEAN CORPUSCULAR HGB CONC 34.2 % (33.0-36.5); MEAN CORPUSCULAR VOLUME 95.5 FL (78-98); MEAN PLATELET VOLUME 7.3 FL (7.4-10.4); MONOCYTES # (AUTO) 0.5 X10'3 (0-0.9); MONOCYTES % (AUTO) 7.8 % (2-12); NEUTROPHILS # (AUTO) 5.7 X10'3 (1.8-7.7); NEUTROPHILS % (AUTO) 83.4 % (42-75); PLATELET COUNT 107 X10'3 (140-440); RED BLOOD COUNT 2.65 X10'6 (4.70-6.10); RED CELL DISTRIBUTION WIDTH 14.4 % (11.5-14.5); WHITE BLOOD COUNT 6.9 X10'3 (4.5-11.0)
[2017-11-04 03:06] LABS: ALANINE AMINOTRANSFERASE 18 U/L (12-78); ALBUMIN 2.5 G/DL (3.4-5.0); ALBUMIN/GLOBULIN RATIO 0.9 (1.1-1.5); ALKALINE PHOSPHATASE 48 IU/L (46-116); ANION GAP 4 (8-16); ASPARTATE AMINO TRANSFERASE 14 U/L (10-37); BILIRUBIN,TOTAL 0.5 MG/DL (0.1-1.0); BLOOD UREA NITROGEN 12 MG/DL (7-18); BUN/CREATININE RATIO 15.6 (5.4-32.0); CALCIUM 7.6 MG/DL (8.5-10.1); CHLORIDE 107 MMOL/L (99-107); CREATININE 0.77 MG/DL (0.60-1.10); GLUCOSE 159 MG/DL (70-104); MAGNESIUM 2.2 MG/DL (1.5-2.4); PHOSPHORUS 2.9 MG/DL (2.3-4.5); POTASSIUM 3.8 MMOL/L (3.5-5.1); SODIUM 140 MMOL/L (135-145); TOTAL CARBON DIOXIDE 28.7 MMOL/L (24-32); TOTAL PROTEIN 5.4 G/DL (6.4-8.2); eGFR > 90 ML/MIN
[2017-11-04] MEDS: potassium Cl 20mEq/100mL bag 100 ML IV PRN ×2 (05:08→06:17)
[2017-11-04 05:11] LABS: ACT @ 1.70 U 280 SEC (193-297); ACT @ 2.84 U 406 SEC (260-420); BASELINE ACT 139 SEC (101-148); PATIENT WEIGHT 84.0k KG
[2017-11-04] MEDS: magnesium 1gm/100ml D5W IVPB 100 ML IV PRN ×2 (07:29→08:44)
[2017-11-04] MEDS: atorvastatin 10mg tablet PO SCH (07:31)
[2017-11-04] MEDS: aspirin 81mg tablet.DR PO SCH (07:31)
[2017-11-04] MEDS: metoprolol tartrate 12.5mg (1/2 tablet) PO SCH ×2 (07:31→20:26)
[2017-11-04] MEDS: docusate sod 100mg capsule PO SCH ×2 (07:32→20:26)
[2017-11-04] MEDS: pantoprazole 40mg Tablet.DR PO SCH (07:32)
[2017-11-04] MEDS: Protein Shake (high protein) 240ml (8oz) cup PO SCH ×3 (08:00→17:22)
[2017-11-04] MEDS: insulin Lispro (HumaLOG) vial - multi-dose SQ SCH ×2 (08:21→18:49)
[2017-11-04] MEDS ORDERED: magnesium Cl slow-release 64mg tablet PO PRN (08:50)
[2017-11-04] MEDS ORDERED: potassium Cl 20 mEq SR tablet PO PRN ×2 (08:50)
[2017-11-04] MEDS ORDERED: magnesium 1gm/100ml D5W IVPB 50 ML IV PRN (08:50)
[2017-11-04] MEDS ORDERED: potassium Cl 40MEQ/NS 500ml 500 ML IV PRN ×2 (08:50)
[2017-11-04] MEDS ORDERED: magnesium 4gm in 100ml NS 100 ML IV PRN (08:50)
[2017-11-04] MEDS: lisinopril 2.5mg tablet PO SCH (09:04)
[2017-11-04] MEDS ORDERED: furosemide 40mg/4ml inj IV ONE (09:50)
[2017-11-04] MEDS ORDERED: magnesium 1gm/100ml D5W IVPB 100 ML IV PRN (13:25)
[2017-11-04] MEDS: HYDROcodone/acetaminophen 10/325mg tab PO PRN ×3 (15:00→21:56)
[2017-11-04] MEDS: magnesium Cl slow-release 64mg tablet PO SCH (20:00)
[2017-11-04] MEDS: potassium Cl 20 mEq SR tablet PO SCH (20:26)
[2017-11-04] MEDS: gabapentin 300mg capsule PO SCH (21:56)
[2017-11-04] MEDS: insulin glargine (Lantus) pen - multi-dose SQ SCH (22:22)
[2017-11-05] MEDS: ketorolac tromethamine 15mg/ml inj. IV SCH ×3 (02:00→13:19)
[2017-11-05 03:00] VITALS: BP 120/70
[2017-11-05 05:29] LABS: K (ABG) 2.9 mmol/L (3.3-5.1)
[2017-11-05] MEDS: HYDROcodone/acetaminophen 10/325mg tab PO PRN ×2 (05:30→12:33)
[2017-11-05 05:48] LABS: BASOPHILS % (AUTO) 0.4 % (0-1); EOSINOPHILS # (AUTO) 0.1 X10'3 (0-0.9); EOSINOPHILS % (AUTO) 2.3 % (0-6); HEMATOCRIT 30.6 % (42.0-52.0); HEMOGLOBIN 10.5 g/dl (14.0-17.9); LYMPHOCYTES # (AUTO) 1.4 X10'3 (1.1-4.8); MEAN CORPUSCULAR HEMOGLOBIN 32.7 PG (27.0-31.0); MEAN CORPUSCULAR HGB CONC 34.4 % (33.0-36.5); MEAN CORPUSCULAR VOLUME 95.2 FL (78-98); MEAN PLATELET VOLUME 7.7 FL (7.4-10.4); MONOCYTES # (AUTO) 0.5 X10'3 (0-0.9); MONOCYTES % (AUTO) 8.7 % (2-12); NEUTROPHILS # (AUTO) 3.5 X10'3 (1.8-7.7); NEUTROPHILS % (AUTO) 63.6 % (42-75); PLATELET COUNT 139 X10'3 (140-440); RED BLOOD COUNT 3.21 X10'6 (4.70-6.10); RED CELL DISTRIBUTION WIDTH 14.3 % (11.5-14.5); WHITE BLOOD COUNT 5.6 X10'3 (4.5-11.0)
[2017-11-05 05:52] LABS: ALBUMIN 2.6 G/DL (3.4-5.0); ANION GAP 4 (8-16); BLOOD UREA NITROGEN 18 MG/DL (7-18); BUN/CREATININE RATIO 25.7 (5.4-32.0); CALCIUM 7.9 MG/DL (8.5-10.1); CHLORIDE 104 MMOL/L (99-107); GLUCOSE 164 MG/DL (70-104); SODIUM 138 MMOL/L (135-145); TOTAL CARBON DIOXIDE 30.2 MMOL/L (24-32); eGFR > 90 ML/MIN
[2017-11-05 06:00] VITALS: BP 131/77
[2017-11-05] MEDS: potassium Cl 20 mEq SR tablet PO SCH (07:57)
[2017-11-05] MEDS: pantoprazole 40mg Tablet.DR PO SCH (07:57)
[2017-11-05] MEDS: lisinopril 2.5mg tablet PO SCH (07:57)
[2017-11-05] MEDS: atorvastatin 10mg tablet PO SCH (07:57)
[2017-11-05] MEDS: metoprolol tartrate 12.5mg (1/2 tablet) PO SCH (07:57)
[2017-11-05] MEDS: docusate sod 100mg capsule PO SCH (07:57)
[2017-11-05] MEDS: magnesium Cl slow-release 64mg tablet PO SCH (07:57)
[2017-11-05] MEDS: aspirin 81mg tablet.DR PO SCH (07:57)
[2017-11-05] MEDS: insulin Lispro (HumaLOG) vial - multi-dose SQ SCH ×2 (07:59→12:37)
[2017-11-05] MEDS ORDERED: K and/or MAG REPLACEMENT MC SCH (08:00)
[2017-11-05] MEDS: Protein Shake (high protein) 240ml (8oz) cup PO SCH ×2 (08:00→13:00)
[2017-11-05 11:00] VITALS: BP 129/77
== END 2017-11-05 14:31 | DRG 234 ==
LOC: SSTAY O 10:09 → PCU 3S 17:06 → CICU 2S 11-01 11:17 → PCU 3S 11-04 10:20
PROVIDERS: ADMIT Internal Medicine Cardiovascular Disease; ATTEND Thoracic Surgery (Cardiothoracic Vascular Surgery)
PROC: 4A023N7 Measurement of Cardiac Sampling and Pressure, Left Heart, Percutaneous Approach (ICD-10-PCS; 2017-10-31)
PROC: B2111ZZ Fluoroscopy of Multiple Coronary Arteries using Low Osmolar Contrast (ICD-10-PCS; 2017-10-31)
PROC: B2151ZZ Fluoroscopy of Left Heart using Low Osmolar Contrast (ICD-10-PCS; 2017-10-31)
PROC: B41F1ZZ Fluoroscopy of Right Lower Extremity Arteries using Low Osmolar Contrast (ICD-10-PCS; 2017-10-31)
PROC: B3111ZZ Fluoroscopy of Right Brachiocephalic-Subclavian Artery using Low Osmolar Contrast (ICD-10-PCS; 2017-10-31)
PROC: B3121ZZ Fluoroscopy of Left Subclavian Artery using Low Osmolar Contrast (ICD-10-PCS; 2017-10-31)
PROC: 02100Z8 Bypass Coronary Artery, One Artery from Right Internal Mammary, Open Approach (ICD-10-PCS; 2017-11-01)
PROC: B24BZZ4 Ultrasonography of Heart with Aorta, Transesophageal (ICD-10-PCS; 2017-11-01)
PROC: 5A1221Z Performance of Cardiac Output, Continuous (ICD-10-PCS; 2017-11-01)
PROC: 02HV33Z Insertion of Infusion Device into Superior Vena Cava, Percutaneous Approach (ICD-10-PCS; 2017-11-01)
PROC: 02100Z9 Bypass Coronary Artery, One Artery from Left Internal Mammary, Open Approach (ICD-10-PCS; principal; 2017-11-01 07:11)
DX: I25.10 Atherosclerotic heart disease of native coronary artery without angina pectoris (principal); E11.9 Type 2 diabetes mellitus without complications; M54.32 Sciatica, left side; G89.29 Other chronic pain; R94.39 Abnormal result of other cardiovascular function study; Z79.899 Other long term (current) drug therapy; Z79.82 Long term (current) use of aspirin
CPT/HCPCS: 0232T; 93312; 93325; 93458; 36415; 36600; 71045; 71046; 80048; 80053; 82330; 82435; 82803; 82947; 82948; 83036; 83735; 84100; 84132; 84295; 85018; 85025; 85347; 85384; 85610; 85730; 86885; 86900; 86901; 86920; 93005; 93880; 93971; 94002; 94010; 94760; 97110; 97116; 97162; 97530; 99152; 99153; A4620; A6213; A6255; A6257; A6258; A6402; A6449; A7000; A7048; C1751; C1760; C1769; J0690; J1644; J1815; J1885; J1940; J2001; J2060; J2150; J2250; J2270; J2370; J2440; J2720; J2930; J3010; J3370; J3480; J3490; J7030; J7060; J7120; P9045; P9047; Q0163; Q9967